=== PATIENT | female | born 1950 | race Caucasian/White ===

== ENCOUNTER 2019-02-15 07:28 | Day surgery (SDC) | payer MEDICARE ==
[2019-02-14 15:35] VITALS: BMI 26.3
[2019-02-15 07:54] LABS: PTT 27.7 SEC (22.9-36.1); Prothrombin Time 13.3 SEC (12.0-14.7)
[2019-02-15 08:27] VITALS: BP 146/78; TEMP 97.8
[2019-02-15] MEDS ORDERED: Midazolam HCl 2 mg/2 ml Vial ONE (09:01)
[2019-02-15] MEDS ORDERED: Fentanyl 100 MCG/2 ML VIAL ONE (09:02)
[2019-02-15] MEDS ORDERED: Sodium Bicarbonate 2.5 MEQ/5 ML VIAL ONE (09:02)
[2019-02-15] MEDS ORDERED: Sodium Chloride 0.9% 10 ML ONE (09:56)
--- NOTE | 2019-02-15 09:59 | ULT ---
US Hepatic Bx History: Abnormal liver function tests Comparison: None. Findings: Patient was brought to the ultrasound suite. All questions were answered. Informed consent was obtained. Timeout performed. Patient was administered 0.5 mg of Versed and 25 mcg of fentanyl by the administering nurse. Patient's abdomen was prepped and draped in normal sterile fashion. 6 mL lidocaine was instilled with in the superficial and deep soft tissues. After adequate local anesthesia, a small incision was made. Using an 18-gauge Bio-Pen needle a total of 2 11 mm cores were obtained. Patient tolerated the procedure well without complication. Impression: Technically successful ultrasound-guided liver biopsy. Total sedation time: 45 minutes
== END 2019-02-15 10:45 | disposition home or self-care (01) ==
LOC: ULT 07:28
PROVIDERS: ATTEND Physician Assistant Medical
DX: K75.81 Nonalcoholic steatohepatitis (NASH) (principal)
CPT/HCPCS: 36415; 47000; 76942; 85610; 85730; 88307; 88313; J2250; J3010